=== PATIENT | male | born 1950 | race Caucasian/White ===

== ENCOUNTER 2021-10-27 | Inpatient (IN) | payer MEDICARE, OTHER, SELFPAY ==
[2021-10-27] VITALS (11 sets, daily range): BP systolic 136–165; BP diastolic 65–87; PULSE 52–77; RESP 15–18; TEMP 36.4–37; O2SAT 96–100; BMI 37.5; BMI 37.7
--- NOTE | 2021-10-27 00:23 | EKG12_ITS ---
Test Reason : Blood Pressure : / mmHG Vent. Rate : 055 BPM Atrial Rate : 055 BPM P-R Int : 156 ms QRS Dur : 086 ms QT Int : 428 ms P-R-T Axes : -26 003 024 degrees QTc Int : 409 ms Sinus bradycardia Otherwise normal ECG Confirmed by BEE RIVERA, TANNA ([id number]), editorial cartoonist STEPHANIA CARVALHO ([id number]) on 10/29/2021 2:02:29 PM Referred By: Confirmed By:TANNA GAMBOA MD
--- NOTE | 2021-10-27 00:23 | EX.ED.DYSGE1 ---
HPI History of Present Illness Chief Complaint: Abd Pain Informant: patient and spouse/S.O. Narrative Narrative: 70-year-old male presenting to the emergency department with abdominal pain. Patient states that he is from [facility]. He states that earlier tonight he ate dinner including pizza and developed abdominal pain. He describes it as right upper quadrant and epigastric. He notes that he has chronic back pain but does not believe he has had a change in his pain. No shoulder pain. He notes nausea but no vomiting. Has never had these symptoms before. No belching. He had a bowel movement this morning. No black or bloody stools. [facility] Medical History (Updated 10/27/21 @ 02:[address] Sheldon Dsouza, DO) Arthritis Back pain with history of spinal surgery Diabetes FHx: total knee replacement Hypertension Hypothyroidism Sleep apnea Home Medications acetaminophen 500 mg tablet 500 mg PO BID 10/27/21 [History Last Taken Unknown] allopurinol 100 mg tablet 100 mg PO DAILY 10/27/21 [History Last Taken Unknown] ascorbic acid (vitamin C) 1,000 mg tablet,extended release (Vitamin C ER) 1,000 mg PO DAILY 10/27/21 [History Last Taken Unknown] aspirin 81 mg chewable tablet 81 mg PO DAILY 10/27/21 [History Last Taken Unknown] evolocumab 140 mg/mL subcutaneous syringe (Repatha Syringe) mg subcut 10/27/21 [History Last Taken Unknown] furosemide 40 mg tablet 40 mg PO DAILY 10/27/21 [History Last Taken Unknown] gabapentin 300 mg capsule 300 mg PO BID 10/27/21 [History Last Taken Unknown] levothyroxine 25 mcg tablet 25 mcg PO DAILY 10/27/21 [History Last Taken Unknown] magnesium 500 mg tablet 15 mg PO DAILY 10/27/21 [History Last Taken Unknown] multivitamin 1 tab PO DAILY 10/27/21 [History Last Taken Unknown] pantoprazole 40 mg tablet,delayed release 40 mg PO DAILY 10/27/21 [History Last Taken Unknown] quinapril 20 mg tablet 20 mg PO BID 10/27/21 [History Last Taken Unknown] semaglutide 0.25 mg or 0.5 mg (2 mg/1.5 mL) subcutaneous pen injector (Ozempic) 0.5 mg subcut QWEEK 10/27/21 [History Last Taken Unknown] Allergy/AdvReac Type Severity Reaction Status Date / Time [id number]-PfG Reductase AdvReac Pain in Verified 10/27/21 00:02 Inhibitor joints Surgical History History of coronary artery stent placement Social History Smoking Status: Never smoker ROS ROS ED Constitutional Constitutional ED: Denies chills or weight loss Eyes Eyes: Denies change in vision or diplopia ENT ENT ED: Denies ear pain, rhinorrhea or sore throat Cardiovascular Cardiovascular: Denies chest pain, orthopnea, palpitations or racing heartbeat Respiratory/Chest Respiratory/Chest: Denies cough, dyspnea or orthopnea Gastrointestinal Gastrointestinal: Reports abdominal pain and nausea; Denies diarrhea or vomiting Genitourinary Genitourinary ED: Denies dysuria, hematuria or urinary frequency Musculoskeletal Musculoskeletal: Denies arthralgias or myalgias Integumentary Denies abscess or rash Neurologic Neurologic: Denies headache(s) or weakness Psychiatric Psychiatric: Denies anxiety, depression, suicidal ideation or suicidal thoughts Endocrine Endocrinology: Denies polydipsia, polyphagia or polyuria Allergic/Immunologic Allergic/Immunologic ED: Denies mouth swelling, tongue swelling or urticaria EXAM Physical Exam Const Vital Signs: 10/27/21 00:02 10/27/21 01:00 10/27/21 02:16 Temperature 97.5 F L 98.2 F Temperature Source Temporal Oral Pulse Rate 61 62 Respiratory Rate 15 16 Blood Pressure 151/82 H 165/82 H Blood Pressure Mean 105 109 Pulse Ox 98 100 Oxygen Delivery Method Room Air Room Air Positive well nourished and well developed General Appearance ED: well developed HEENT Reports normocephalic, head/scalp atraumatic and moist mucous membranes Eyes PERRL and EOMs intact bilaterally Neck no lymphadenopathy, supple and no JVD Resp normal respiratory effort and clear to auscultation bilaterally Cardio regular rate, regular rhythm and no murmurs GI Inspection: Negative for abdominal distention Auscultation: normoactive bowel sounds Palpation: soft and tender epigastric and RUQ Back/Spine no CVA tenderness and normal ROM Extremity normal to inspection General Extremety ED: Negative for edema General Extremity: Negative for edema Neuro oriented x3 and CN's II-XII intact bilaterally Sensorium / Orientation: alert Motor Exam: strength 5/5 throughout Psych mental status grossly normal Mood & Affect: Negative for depressed or tearful Skin no rashes or lesions noted and no wounds MDM MDM MDM Narrative Medical decision making narrative: White count returns at 12.4. Lipase 151 with normal liver enzymes. Patient received morphine and Zofran as well as Protonix and a GI cocktail. CT of the abdomen pelvis demonstrates apparent thickening of the gallbladder wall and possibly pericholecystic fluid. Ultrasound is not currently here at the hospital. They are on-call but just in a few hours they will be here. I spoke with the patient think is reasonable that we let him rest here tonight and will obtain a gallbladder ultrasound first thing in the morning. Care the patient will be reassigned to the daytime physician. Lab Data Attestation: I reviewed the patient's lab results. Labs: Laboratory Results - last 24 hr 10/27/21 10/27/21 00:15 00:15 WBC 12.4 H RBC 4.94 Hgb 14.8 Hct 44.3 MCV 89.7 MCH 30.0 MCHC 33.4 RDW Std Deviation 48.3 H RDW Coeff of [place] 14.6 Plt Count 177 MPV 10.6 Immature Gran % (Auto) 0.400 Neut % (Auto) 84.9 H Lymph % (Auto) 9.1 L [place] % (Auto) 4.8 Eos % (Auto) 0.6 Baso % (Auto) 0.2 Absolute Neuts (auto) 10.5 H Absolute Lymphs (auto) 1.12 Nucleated RBC % 0 Sodium 136 Potassium 4.1 Chloride 103 Carbon Dioxide 27.0 Anion Gap 6 BUN 23 H Creatinine 1.28 Estim Creat Clear Calc 51.95 Est GFR (MDRD) Af Amer 71 Est GFR (MDRD) Non-Af 59 L BUN/Creatinine Ratio 18.0 Glucose 146 H Calcium 9.8 Total Bilirubin 0.60 Direct Bilirubin 0.18 AST 56 H ALT 56 Alkaline Phosphatase 93 Troponin I High Sens 6 Total Protein 8.5 H Albumin 4.1 Globulin 4.4 H Lipase 151 Radiography Diagnostic Testing: Clinical Impression(s) from Imaging Studies Abdomen/Pelvis CT 10/27/21 01:04 IMPRESSION: Relatively prominent gallbladder wall. Ultrasound correlation may be helpful to evaluate for cholecystitis if clinically indicated. Prominent enhancement of the wall of the CBD question inflammatory. No other acute intra-abdominal findings. Sclerotic changes of lumbar vertebral bodies most likely related to degenerative changes. Electronically Signed: Lynsey Lemus MD at 1:53 EDT , EKG Initial EKG: Attestation: I personally reviewed and interpreted this EKG as follows: Comments: Sinus bradycardia with a ventricular rate of 55 bpm. Discharge Plan Triage Chief Complaint: Abd Pain ED Provider: Sheldon Dsouza Dx/Rx/DC Orders Clinical Impression: Abdominal pain, acute Prescriptions: No Action multivitamin [Daily Vitamin] Tablet 1 tab PO DAILY Vitamin C 1,000 mg Tablet Extended Release 1,000 mg PO DAILY furosemide 40 mg Tablet 40 mg PO DAILY magnesium 500 mg Tablet 15 mg PO DAILY allopurinol 100 mg Tablet 100 mg PO DAILY acetaminophen 500 mg Tablet 500 mg PO BID levothyroxine 25 mcg Tablet 25 mcg PO DAILY pantoprazole 40 mg Tablet,Delayed Release (Dr/Ec) 40 mg PO DAILY gabapentin 300 mg Capsule 300 mg PO BID aspirin [Baby Aspirin] 81 mg Tablet,Chewable 81 mg PO DAILY quinapril 20 mg Tablet 20 mg PO BID Ozempic 0.25 mg or 0.5 mg(2 mg/1.5 mL) Pen Injector 0.5 mg SUBCUT QWEEK Rx Instructions: for 4 doses Repatha Syringe 140 mg/mL Syringe SUBCUT Primary Care Provider: ELLYN ROBLES Referrals: [facility] Doctor,Out of [NON-STAFF] -
[2021-10-27] MEDS: Morphine 4 MG/ML Syringe IV ×6 (00:30→22:08)
[2021-10-27] MEDS: Ondansetron 4 MG/2 ML Vial IV ×2 (00:30→22:08)
[2021-10-27] MEDS: 0.9% Normal Saline 1,000 ML 1000 ML IV (00:30)
[2021-10-27 00:33] LABS: Absolute Lymphocyte Count 1.12 X10^3/uL (0.83-4.51); Absolute Neutrophil Count 10.5 X10^3/uL (2.0-7.7); Basophil# 0.02 X10^3/uL; Basophil% 0.2 % (0-1); Eosinophil# 0.07 X10^3/uL; Eosinophils% 0.6 % (0-5); Hematocrit 44.3 % (40-54); Hemoglobin 14.8 g/dL (13.0-16.5); Lymphocyte # 1.12 X10^3/ul (0.83-4.51); Lymphocyte % 9.1 % (19-41); Mean Corp Hgb Conc 33.4 g/dL (32-36); Mean Corpuscular Volume 89.7 fL (80-94); Mean Platelet Vol. 10.6 fl (6.2-12.0); Monocyte# 0.59 X10^3/uL; Monocyte% 4.8 % (0-10); NRBC Flagged by Analyzer 0 % (0-5); Neutrophil % 84.9 % (47-70); Platelet Count 177 K/mm3 (150-450); RBC Distribution Width CV 14.6 % (11.6-14.6); RBC Distribution Width SD 48.3 fl (35.1-43.9); Red Blood Count 4.94 M/mm3 (4.6-6.2); White Blood Count 12.4 K/mm3 (4.4-11.0)
[2021-10-27 00:54] LABS: AST(SGOT) 56 U/L (15-37); Alanine Aminotransfer ALT/SGPT 56 U/L (16-61); Albumin, Serum 4.1 g/dL (3.2-5.0); Alkaline Phosphatase 93 U/L (45-117); Anion Gap 6 (5-15); BUN 23 mg/dL (7-18); Bilirubin, Direct 0.18 mg/dL (0.00-0.30); Calcium,Total 9.8 mg/dL (8.5-10.1); Chloride 103 mmol/L (98-107); Creatinine, Serum 1.28 mg/dL (0.70-1.30); EST Glomerular Filtration Rate 59 mL/min (>60); Est Glom Filt Rate - Afr Amer 71 mL/min (>60); Estimated Creatinine Clearance 51.95 ml/min; Globulin 4.4 g/dL (2.2-4.2); Glucose 146 mg/dL (74-106); Lipase 151 U/L (73-393); Potassium 4.1 mmol/L (3.5-5.1); Protein, Total 8.5 g/dL (6.4-8.2); Sodium Level 136 mmol/L (136-145); Troponin-I HS (w/2H Reflex) 6 pg/mL (3.0-78.0)
--- NOTE | 2021-10-27 01:04 | CT_ITS ---
STUDY: CT ABDOMEN AND PELVIS WITH CONTRAST REASON FOR EXAM: Male, 70 years old. abdominal pain RADIATION DOSAGE (If Supplied By Facility): CTDIvol = ( 18.53 ) mGy, DLP = ( 1330.84 ) mGycm TECHNIQUE: Transaxial images were obtained from the dome of the diaphragm to the symphysis pubis without oral contrast. IV 100mL Isovue-370 was administered. Sagittal and coronal images were reconstructed. Individualized dose optimization techniques were used for this CT. COMPARISON: None. FINDINGS: LOWER CHEST: Mild interstitial changes in the lung bases. Coronary artery calcifications LIVER: Unremarkable. GALLBLADDER/BILE DUCTS: Prominent gallbladder wall. Small amount of adjacent fluid. No definite calcified gallstones identified. Relatively prominent enhancing wall of the common bile duct without significant biliary dilatation. PANCREAS: Unremarkable. SPLEEN: Unremarkable. ADRENAL GLANDS: Unremarkable. KIDNEYS / URETERS: Small calculus in the left kidney. No hydronephrosis.. BOWEL / MESENTERY: Unremarkable. No bowel obstruction. APPENDIX: Identified and normal. No evidence of acute appendicitis. PERITONEUM: No free air. No free fluid. VESSELS: Abdominal aorta is normal caliber. RETROPERITONEUM: Unremarkable. REPRODUCTIVE ORGANS: Unremarkable. BLADDER: Unremarkable. ABDOMINAL WALL: Unremarkable. BONES: Surgical hardware in the lumbar spine and degenerative changes. Relative sclerosis of L1 and L2 vertebral bodies and L5 and S1 likely secondary to degenerative changes.. OTHER: None. CT/Abdomen/Pelvis W IV Cont ONLY IMPRESSION: Relatively prominent gallbladder wall. Ultrasound correlation may be helpful to evaluate for cholecystitis if clinically indicated. Prominent enhancement of the wall of the CBD question inflammatory. No other acute intra-abdominal findings. Sclerotic changes of lumbar vertebral bodies most likely related to degenerative changes. Electronically Signed: Lynsey Lemus MD at 1:53 EDT ,
[2021-10-27] MEDS: Mag Hydrox/Al Hydrox/Simeth 30 ML UDC PO (01:21)
--- NOTE | 2021-10-27 02:20 | US_ITS ---
EXAM: US ABDOMEN LIMITED, RIGHT UPPER QUADRANT CLINICAL INDICATION: pain -- RUQ PAIN X 2 DAYS -- F/U CT TECHNIQUE: Real-time ultrasound of the right upper quadrant with image documentation. This report was created using [employer] report generation technology. COMPARISON: None. FINDINGS: LIVER: The liver measures 18.8 cm. There is normal echotexture. No intrahepatic biliary ductal dilation. GALLBLADDER: The gallbladder wall is thickened measuring 4 mm. A small echogenic focus present compatible with small gallstone. The patient had a positive sonographic Castaneda sign. There is trace pericholecystic fluid identified. COMMON BILE DUCT: The common bile duct measures 5 mm. The proximal common bile duct is within normal limits for the patient''s age. PANCREAS: Unremarkable as visualized. No focal abnormality is demonstrated in the pancreas. No pancreatic ductal dilatation. RIGHT KIDNEY: The right kidney measures 10.5 x 5.1 x 4.7 cm. There is no hydronephrosis. No shadowing calculus. No focal lesion or perinephric collection is demonstrated. US/Gallbladder IMPRESSION: Cholelithiasis with gallbladder wall thickening and trace pericholecystic fluid. Patient also had a positive sonographic Castaneda''s sign and these findings can be seen in cholecystitis. Electronically Signed: Ethan Blanc MD at 9:02 EDT ,
[2021-10-27 02:31] LABS: Reflex Troponin-HS? (from REC) Y
[2021-10-27] MEDS: Metoclopramide 10 MG/2 ML Vial 5 MG IV (08:36)
--- NOTE | 2021-10-27 10:44 | PCM.HP.STD ---
HPI - General General Date of Admission: 10/27/21 Date of Service: 10/27/21 Chief Complaint: Abdominal pain HPI Narrative IVANIA HERNANDEZ, is a 70 M who presents with 1 day history of abdominal pain. Patient stated he ate pizza and [place] He noted about an hour after he developed a band-like pain across the upper abdomen. Patient states the pain lasted for 5-6 hours without any relief. This prompted them to seek treatment. Patient and his are currently camping in the [facility]. They are from [facility] and all of their doctors are from that location. 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 She stated she knew the wait would be long at that ED so they decided to come to [facility] ED. Patient noted the pain in the right upper quadrant has improved since receiving pain medication, however it is still present. He noted nausea associated with the pain. No vomiting. He is urinating well. His last bowel movement was yesterday morning. He denies any previous abdominal surgeries. He has been vaccinated for COVID. He has never been diagnosed with COVID and recently had a COVID for a cruise in August which he was found negative. He denies current chest pain, cough, shortness of breath. He denies history of blood clots, stroke and myocardial infarction. He had 2 stents placed approximately 2 years ago and was placed on Brilinta at that time for 1 year. Brilinta had been discontinued now and he is maintained on a daily [address] 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 Patient has a history of diabetes which is well controlled per patient. He also has a history of sleep apnea which he uses a Bipap machine at night. Patient notes he had a uvulectomy procedure completed in 1999' for sleep apnea however he continues to use the machine. CT scan of the ab/pel was completed demonstrating: MPRESSION: Relatively prominent gallbladder wall.? Ultrasound correlation may be helpful to evaluate for cholecystitis if clinically indicated. Prominent enhancement of the wall of the CBD question inflammatory. No other acute intra-abdominal findings. Sclerotic changes of lumbar vertebral bodies most likely related to degenerative changes. RUQ u/s demonstrated: IMPRESSION: ? Cholelithiasis with gallbladder wall thickening and trace pericholecystic fluid.? Patient also had a positive sonographic Castaneda''s sign and these findings can be seen in cholecystitis. Patient was found to have a WBC of 12.4. AST is elevated at 56 otherwise liver enzymes are within normal range. [facility] Medical History (Updated 10/27/21 @ 11:25 by Caitlin CHRISTIANSON PA-C) Arthritis Back pain with history of spinal surgery Diabetes FHx: total knee replacement Hypertension Hypothyroidism Sleep apnea Home Medications acetaminophen 500 mg tablet 500 mg PO BID 10/27/21 [History Last Taken Unknown] allopurinol 100 mg tablet 100 mg PO DAILY 10/27/21 [History Last Taken Unknown] ascorbic acid (vitamin C) 1,000 mg tablet,extended release (Vitamin C ER) 1,000 mg PO DAILY 10/27/21 [History Last Taken Unknown] aspirin 81 mg chewable tablet 81 mg PO 2200 10/27/21 [History Last Taken Unknown] evolocumab 140 mg/mL subcutaneous syringe (Repatha Syringe) mg subcut 10/27/21 [History Last Taken Unknown] furosemide 40 mg tablet 40 mg PO DAILY 10/27/21 [History Last Taken Unknown] gabapentin 300 mg capsule 300 mg PO BID 10/27/21 [History Last Taken Unknown] levothyroxine 25 mcg tablet 25 mcg PO DAILY 10/27/21 [History Last Taken Unknown] magnesium 500 mg tablet 500 mg PO DAILY 10/27/21 [History Last Taken Unknown] multivitamin 1 tab PO DAILY 10/27/21 [History Last Taken Unknown] pantoprazole 40 mg tablet,delayed release 40 mg PO DAILY 10/27/21 [History Last Taken Unknown] quinapril 20 mg tablet 20 mg PO BID 10/27/21 [History Last Taken Unknown] semaglutide 0.25 mg or 0.5 mg (2 mg/1.5 mL) subcutaneous pen injector (Ozempic) 0.5 mg subcut QWEEK 10/27/21 [History Last Taken Unknown] Allergy/AdvReac Type Severity Reaction Status Date / Time [id number] Reductase AdvReac Pain in Verified 10/27/21 00:02 Inhibitor joints Surgical History History of coronary artery stent placement Social History Smoking Status: Never smoker ROS Constitutional Constitutional: Reports systems reviewed and no addt'l complaints, except as documented Eyes Eyes: Reports systems reviewed and no addt'l complaints, except as documented ENT HEENT: Reports systems reviewed and no addt'l complaints, except as documented Cardiovascular Cardiovascular: Reports systems reviewed and no addt'l complaints, except as documented and other Details: venous insufficiency of bilateral lower extremities Respiratory/Chest Respiratory/Chest: Reports systems reviewed and no addt'l complaints, except as documented Gastrointestinal Gastrointestinal: Reports systems reviewed and no addt'l complaints, except as documented Genitourinary Genitourinary: Reports systems reviewed and no addt'l complaints, except as documented Musculoskeletal Musculoskeletal: Reports systems reviewed and no addt'l complaints, except as documented Integumentary Integumentary: Reports systems reviewed and no addt'l complaints, except as documented Neurologic Neurologic: Reports systems reviewed and no addt'l complaints, except as documented Psychiatric Psychiatric: Reports systems reviewed and no addt'l complaints, except as documented Endocrine Endocrinology: Reports systems reviewed and no addt'l complaints, except as documented Hematologic/Lymphatic Hematologic/Lymphatic: Reports systems reviewed and no addt'l complaints, except as documented Allergic/Immunologic Allergic/Immunologic: Reports systems reviewed and no addt'l complaints, except as documented Vital Signs Vital Signs Vital Signs: 10/27/21 00:02 10/27/21 01:00 10/27/21 02:16 Temperature 97.5 F L 98.2 F Temperature Source Temporal Oral Pulse Rate 61 62 Respiratory Rate 15 16 Blood Pressure 151/82 H 165/82 H Blood Pressure Mean 105 109 Pulse Ox 98 100 Oxygen Delivery Method Room Air Room Air 10/27/21 04:58 10/27/21 06:45 10/27/21 08:27 Temperature 97.7 F L 97.6 F L Temperature Source Temporal Oral Pulse Rate 57 L 55 L 58 L Respiratory Rate 18 18 18 Blood Pressure 159/87 H 146/85 H 148/72 H Blood Pressure Mean 111 105 97 Pulse Ox 97 97 98 Oxygen Delivery Method Room Air Room Air Room Air Weight Weight: 246 lb 14.684 oz Body Mass Index (BMI) 37.5 Physical Exam Const alert, oriented x3 and no apparent distress Nutritional Appearance: obese HEENT normocephalic and head/scalp atraumatic Eyes PERRL Neck full ROM Lymph Lymphatic: no lymphadenopathy noted Chest inspection of chest normal Resp normal respiratory effort, normal air movement and clear to auscultation bilaterally Cardio regular rate and regular rhythm GI Inspection: abdominal distention and central obesity Auscultation: normoactive bowel sounds Palpation: soft and tender epigastric and RUQ no CVA tenderness Back/Spine no CVA tenderness Extremity General Extremity: edema bilateral lower extremity Details: mild Skin no rashes or lesions noted Neuro oriented x3, no focal motor deficits and no sensory deficits noted Psych mental status grossly normal and thought process normal Results Lab / Micro Data Result Diagrams: 10/27/21 00:15 10/27/21 00:15 Labs: Laboratory Results - last 24 hr 10/27/21 00:15: WBC 12.4 H, RBC 4.94, Hgb 14.8, Hct 44.3, MCV 89.7, MCH 30.0, MCHC 33.4, RDW Std Deviation 48.3 H, RDW Coeff of [place] 14.6, Plt Count 177, MPV 10.6, Immature Gran % (Auto) 0.400, Neut % (Auto) 84.9 H, Lymph % (Auto) 9.1 L, [place] % (Auto) 4.8, Eos % (Auto) 0.6, Baso % (Auto) 0.2, Absolute Neuts (auto) 10.5 H, Absolute Lymphs (auto) 1.12, Nucleated RBC % 0 10/27/21 00:15: Sodium 136, Potassium 4.1, Chloride 103, Carbon Dioxide 27.0, Anion Gap 6, BUN 23 H, Creatinine 1.28, Estim Creat Clear Calc 51.95, Est GFR (MDRD) Af Amer 71, Est GFR (MDRD) Non-Af 59 L, BUN/Creatinine Ratio 18.0, Glucose 146 H, Calcium 9.8, Total Bilirubin 0.60, Direct Bilirubin 0.18, AST 56 H, ALT 56, Alkaline Phosphatase 93, Troponin I High Sens 6, Total Protein 8.5 H, Albumin 4.1, Globulin 4.4 H, Lipase 151 Radiology Impression Abdomen/Pelvis CT 10/27/21 01:04 IMPRESSION: Relatively prominent gallbladder wall. Ultrasound correlation may be helpful to evaluate for cholecystitis if clinically indicated. Prominent enhancement of the wall of the CBD question inflammatory. No other acute intra-abdominal findings. Sclerotic changes of lumbar vertebral bodies most likely related to degenerative changes. Electronically Signed: Lynsey Lemus MD at 1:53 EDT , Gallbladder Ultrasound 10/27/21 02:20 IMPRESSION: Cholelithiasis with gallbladder wall thickening and trace pericholecystic fluid. Patient also had a positive sonographic Castaneda''s sign and these findings can be seen in cholecystitis. Electronically Signed: Ethan Blanc MD at 9:02 EDT , Assessment & Plan Assessment/Plan (1) Acute cholecystitis: PLAN: I am have evaluated this patient in conjunction with Dr. Harris. She will independently evaluate this patient. Patient presents with acute RUQ abdominal pain, positive gallbladder wall thickness and pericholecystic fluid consistent with acute cholecystitis. Plan to admit patient, IV antibiotics, clear liquid diet, and pain control. Consult hospitalist for medical management of the patient's diabetes and hypertension. Dr. Harris will plan to perform a laparoscopic cholecystectomy with intraoperative cholangiogram tomorrow. Procedure details, risks and benefits have been explained to the patient and patient's . All parties have had the opportunity to ask and have questions answered. Patient verbally understands and agrees with the plan. Patient is concerned that he has not had any of his normal medications yet this morning. Plan to restart routine medications upon admission. Patient to be NPO after midnight tonight. Surgery planned for approximately 1:30 pm, 10/28. Thank you for allowing us to participate in this patient's care. Appreciate Hospitalist recommendations and assistance with this patient. Charges/Coding Visit Charges Inpatient E&M: 65681 Init Hosp L2
--- NOTE | 2021-10-27 11:30 | RAD_ITS ---
EXAM: XR CHEST, 1 VIEW CLINICAL INDICATION: preop TECHNIQUE: Frontal view of the chest. This report was created using [employer] report generation technology. COMPARISON: None. FINDINGS: LUNGS AND PLEURAL SPACES: Unremarkable. No consolidation or edema. No pneumothorax. No effusion. HEART: Unremarkable. Cardiac silhouette not enlarged. MEDIASTINUM: Central airways and mediastinal contour are unremarkable. BONES/JOINTS: Unremarkable. SOFT TISSUES: Unremarkable. RAD/Chest 1 View (Portable) IMPRESSION: No radiographic evidence of acute cardiopulmonary disease. Electronically Signed: Ethan Blanc MD at 11:54 EDT ,
[2021-10-27] MEDS: Allopurinol 100 MG Tablet PO (11:54)
[2021-10-27] MEDS: Lisinopril 20 MG Tablet PO ×2 (11:54→22:31)
[2021-10-27] MEDS: Furosemide 40 MG Tablet PO (11:54)
[2021-10-27] MEDS: 0.9% Normal Saline 1,000 ML 100 ML IV ×2 (11:55→20:58)
[2021-10-27] MEDS: Pantoprazole Sodium 40 MG Tablet PO (11:59)
[2021-10-27 12:26] LABS: Bedside Glucose 129 mg/dL (74-106)
--- NOTE | 2021-10-27 15:20 | PN.HOSP_ITS ---
Subjective Subjective Mr. Briceno is a 70-year-old male who presented to the emergency department [facility] on 10/27/2021 with epigastric and right upper quadrant pain. He had been camping down here with friends as he is from [facility] and went for [employer] and [employer] last evening. Unfortunately afterwards at about 630 he developed some epigastric and right upper quadrant pain that felt like a band around this area. He states that his friend recently had a cholecystectomy due to gallbladder disease and told him it was the same pain he had. His symptoms did not subside so he decided to present to emergency department. A CT of his abdomen was performed by the emergency department physician and showed a relatively prominent gallbladder wall and a gallbladder ultrasound was performed. Right upper quadrant ultrasound showed cholelithiasis with gallbladder wall thickening and trace pericholecystic fluid as well as a positive sonographic Castaneda sign. General surgery has admitted the patient for cholecystectomy planned for tomorrow and we have been consulted for medical clearance. Patient has a past medical history of coronary artery disease for which she had stents placed approximately 2 years ago. He denies any ongoing chest pain or exertional dyspnea. He also has hyperlipidemia hypertension and hypothyroidism. He has had multiple surgeries previously and tolerated this well. He does have obstructive deep sleep apnea and sounds like he is on AutoPap at home but unfortunately does not have his machine available at this time. He states he typically does well in the hospital postoperatively with supplemental oxygen and oxygen nocturnally. He states his pain is currently fairly well controlled. Objective Data Objective Data Vital Signs: Vital Signs Temp Pulse Resp BP Pulse Ox O2 Del Method 98.0 F 77 16 141/71 H 100 Room Air 10/27/21 11:12 10/27/21 11:12 10/27/21 11:12 10/27/21 11:12 10/27/21 11:12 10/27/21 11:12 Oxygen Delivery Method Room Air Weight: 112.491 kg Body Mass Index (BMI) 37.7 Intake & Output: Intake and Output for Last 24 Hours 10/25/21 10/26/21 10/27/21 23:59 23:59 23:59 Intake Total 1710 / 1710 Balance 1710 / 1710 Lab / Micro Data Result Diagrams: 10/27/21 00:15 10/27/21 00:15 Labs: Laboratory Results - last 24 hr 10/27/21 00:15: WBC 12.4 H, RBC 4.94, Hgb 14.8, Hct 44.3, MCV 89.7, MCH 30.0, MCHC 33.4, RDW Std Deviation 48.3 H, RDW Coeff of Donavan 14.6, Plt Count 177, MPV 10.6, Immature Gran % (Auto) 0.400, Neut % (Auto) 84.9 H, Lymph % (Auto) 9.1 L, [place] % (Auto) 4.8, Eos % (Auto) 0.6, Baso % (Auto) 0.2, Absolute Neuts (auto) 10.5 H, Absolute Lymphs (auto) 1.12, Nucleated RBC % 0 10/27/21 00:15: Sodium 136, Potassium 4.1, Chloride 103, Carbon Dioxide 27.0, Anion Gap 6, BUN 23 H, Creatinine 1.28, Estim Creat Clear Calc 51.95, Est GFR (MDRD) Af Amer 71, Est GFR (MDRD) Non-Af 59 L, BUN/Creatinine Ratio 18.0, Glucose 146 H, Calcium 9.8, Total Bilirubin 0.60, Direct Bilirubin 0.18, AST 56 H, ALT 56, Alkaline Phosphatase 93, Troponin I High Sens 6, Total Protein 8.5 H, Albumin 4.1, Globulin 4.4 H, Lipase 151 10/27/21 12:06: POC Glucose 129 H Radiography Diagnostic Testing: Radiology Impression Abdomen/Pelvis CT 10/27/21 01:04 IMPRESSION: Relatively prominent gallbladder wall. Ultrasound correlation may be helpful to evaluate for cholecystitis if clinically indicated. Prominent enhancement of the wall of the CBD question inflammatory. No other acute intra-abdominal findings. Sclerotic changes of lumbar vertebral bodies most likely related to degenerative changes. Electronically Signed: Lynsey Lemus MD at 1:53 EDT , Gallbladder Ultrasound 10/27/21 02:20 IMPRESSION: Cholelithiasis with gallbladder wall thickening and trace pericholecystic fluid. Patient also had a positive sonographic Castaneda''s sign and these findings can be seen in cholecystitis. Electronically Signed: Ethan Blanc MD at 9:02 EDT , Chest X-Ray 10/27/21 11:30 IMPRESSION: No radiographic evidence of acute cardiopulmonary disease. Electronically Signed: Ethan Blanc MD at 11:54 EDT , Physical Exam Const alert, oriented x3, no apparent distress, healthy appearing and well nourished Constitutional Narrative: Obese white male sitting up in bed, at bedside, patient appears comfortable and nontoxic at this time HEENT head/scalp atraumatic, moist oral mucous membranes and oropharynx normal HEENT Narrative: Mallampati is 3 Resp normal respiratory effort, no retractions, no use of accessory muscles and clear to auscultation bilaterally Auscultation: Negative for crackles, rales, rhonchi or wheezes Cardio regular rate, regular rhythm, S1 normal heart sound, S2 normal heart sound, no murmurs, no rub, no gallops, no clicks and no JVD GI normal to inspection, nondistended, normoactive bowel sounds, soft to palpation and non-distended GI Narrative: Tender in the epigastrium and right upper quadrant Palpation: tender Extremity no clubbing, cyanosis or edema Extremity Narrative: Evidence of bilateral knee replacements with well-healed surgical incisions Neuro oriented x3, CN's II-XII intact bilaterally, moves all extremities and no focal motor deficits Psych affect normal Psych Narrative: Very pleasant and appropriately interactive Assessment & Plan Assessment/Plan (1) Acute cholecystitis: (2) Abdominal pain, acute: PLAN: Plan Acute cholecystitis -Management per primary service -Plans for OR tomorrow -Preoperative EKG shows normal sinus rhythm without any ST-T wave changes -Preoperative chest x-ray shows no acute findings -Recommend this postoperative oxygen supplementation as patient has a history of PARTH -Dr. Harris following CAD/HTN/HPL -Patient with history of coronary stents -Currently completely asymptomatic and EKG is unremarkable -Continue home Lasix -Continue home quinapril -Any home aspirin -Hold home Repatha but restarted on discharge History of gout -Continue home allopurinol Neuropathy -Continue home gabapentin Hypothyroidism -Continue home levothyroxine GERD -Continue Protonix DM-2 -Hold home Ozempic -Sliding scale insulin -Accu-Cheks every 6 hours while NPO and then before meals and at bedtime when diet initiated PARTH -Patient on AutoPap at home and we do not have capabilities to do that -Patient unable to bring in his home unit -We will use supplemental oxygen nocturnally DVT prophylaxis -Per primary service Charges/Coding Visit Charges Inpatient E&M: 13104 Subs Hosp L2
[2021-10-27 17:30] LABS: Bedside Glucose 119 mg/dL (74-106)
[2021-10-27 19:49] LABS: Thyroid Stim Hormone (TSH) 3.46 uIU/mL (0.358-3.74)
[2021-10-27] MEDS: Acetaminophen 325 MG Tablet 650 MG PO (20:57)
[2021-10-27] MEDS: 0.9% Saline Lock 10 ML Syringe IV (22:08)
[2021-10-27] MEDS: Gabapentin 300 MG Capsule PO (22:08)
[2021-10-27 22:50] LABS: Bedside Glucose 106 mg/dL (74-106)
[2021-10-28] VITALS (14 sets, daily range): BP systolic 108–174; BP diastolic 65–88; PULSE 49–63; RESP 16–18; TEMP 36.2–37.3; O2SAT 93–99; BMI 37.7
[2021-10-28] MEDS: 0.9% Normal Saline 1,000 ML 100 ML IV ×2 (05:40→20:14)
[2021-10-28 06:15] LABS: Bedside Glucose 103 mg/dL (74-106)
[2021-10-28 06:55] LABS: Absolute Lymphocyte Count 1.18 X10^3/uL (0.83-4.51); Absolute Neutrophil Count 6.4 X10^3/uL (2.0-7.7); Basophil# 0.01 X10^3/uL; Basophil% 0.1 % (0-1); Eosinophil# 0.04 X10^3/uL; Eosinophils% 0.5 % (0-5); Hematocrit 36.2 % (40-54); Hemoglobin 12.2 g/dL (13.0-16.5); Lymphocyte # 1.18 X10^3/ul (0.83-4.51); Lymphocyte % 13.6 % (19-41); Mean Corp Hgb Conc 33.7 g/dL (32-36); Mean Corpuscular Hgb 29.8 pg (27.0-32.0); Mean Corpuscular Volume 88.5 fL (80-94); Mean Platelet Vol. 11.2 fl (6.2-12.0); Monocyte# 0.98 X10^3/uL; Monocyte% 11.3 % (0-10); NRBC Flagged by Analyzer 0 % (0-5); Neutrophil # 6.42 X10^3/uL (2.7-7.7); Neutrophil % 74.3 % (47-70); Platelet Count 124 K/mm3 (150-450); RBC Distribution Width CV 15.1 % (11.6-14.6); Red Blood Count 4.09 M/mm3 (4.6-6.2); White Blood Count 8.7 K/mm3 (4.4-11.0)
[2021-10-28 07:20] LABS: ALB/GLOB Ratio 0.7 RATIO (0.9-2.4); AST(SGOT) 47 U/L (15-37); Alanine Aminotransfer ALT/SGPT 38 U/L (16-61); Albumin, Serum 2.5 g/dL (3.2-5.0); Alkaline Phosphatase 64 U/L (45-117); Anion Gap 3 (5-15); BUN 18 mg/dL (7-18); BUN/Creat Ratio 17.5 RATIO (10-20); Calcium,Total 8.7 mg/dL (8.5-10.1); Chloride 106 mmol/L (98-107); Creatinine, Serum 1.03 mg/dL (0.70-1.30); EST Glomerular Filtration Rate 76 mL/min (>60); Est Glom Filt Rate - Afr Amer 92 mL/min (>60); Estimated Creatinine Clearance 64.56 ml/min; Globulin 3.8 g/dL (2.2-4.2); Glucose 102 mg/dL (74-106); Potassium 4.1 mmol/L (3.5-5.1); Protein, Total 6.3 g/dL (6.4-8.2); Sodium Level 137 mmol/L (136-145)
--- NOTE | 2021-10-28 07:30 | CPS ---
Pt wears a CPAP at home but was camping without it and just wants to wear oxygen at night, not wear one of our machines.
--- NOTE | 2021-10-28 08:29 | PN.SURG_ITS ---
Subjective Subjective Patient states he still has an upper quadrant/epigastric pain is much better if he is resting and not moving around. Objective Data Objective Data Vital Signs: Vital Signs Temp Pulse Resp BP Pulse Ox O2 Del Method O2 Flow Rate 98.4 F 49 L 16 108/65 98 Nasal Cannula 2 10/28/21 05:54 10/28/21 05:54 10/28/21 05:54 10/28/21 05:54 10/28/21 07:30 10/28/21 07:30 10/28/21 07:30 Oxygen Flow Rate (L/min) 2 Oxygen Delivery Method Nasal Cannula Weight: 248 lb Body Mass Index (BMI) 37.7 Intake & Output: Intake and Output for Last 24 Hours 10/26/21 10/27/21 10/28/21 23:59 23:59 23:59 Intake Total 3225 / 3225 920 / 920 Balance 3225 / 3225 920 / 920 Lab / Micro Data Result Diagrams: 10/28/21 06:10 10/28/21 06:10 Labs: Laboratory Results - last 24 hr 10/27/21 00:15: TSH 3.46 10/27/21 12:06: POC Glucose 129 H 10/27/21 17:08: POC Glucose 119 H 10/27/21 22:28: POC Glucose 106 10/28/21 05:48: POC Glucose 103 10/28/21 06:10: WBC 8.7, RBC 4.09 L, Hgb 12.2 L, Hct 36.2 L, MCV 88.5, MCH 29.8, MCHC 33.7, RDW Std Deviation 49.0 H, RDW Coeff of Donavan 15.1 H, Plt Count 124 L, MPV 11.2, Immature Gran % (Auto) 0.200, Neut % (Auto) 74.3 H, Lymph % (Auto) 13.6 L, [place] % (Auto) 11.3 H, Eos % (Auto) 0.5, Baso % (Auto) 0.1, Absolute Neuts (auto) 6.4, Absolute Lymphs (auto) 1.18, Nucleated RBC % 0 10/28/21 06:10: Sodium 137, Potassium 4.1, Chloride 106, Carbon Dioxide 28.0, Anion Gap 3 L, BUN 18, Creatinine 1.03, Estim Creat Clear Calc 64.56, Est GFR (MDRD) Af Amer 92, Est GFR (MDRD) Non-Af 76, BUN/Creatinine Ratio 17.5, Glucose 102, Calcium 8.7, Total Bilirubin 0.70, AST 47 H, ALT 38, Alkaline Phosphatase 64, Total Protein 6.3 L, Albumin 2.5 L, Globulin 3.8, Albumin/Globulin Ratio 0.7 L 10/28/21 06:10: Hemoglobin A1c 6.0 H Radiography Diagnostic Testing: Radiology Impression Gallbladder Ultrasound 10/27/21 02:20 IMPRESSION: Cholelithiasis with gallbladder wall thickening and trace pericholecystic fluid. Patient also had a positive sonographic Castaneda''s sign and these findings can be seen in cholecystitis. Electronically Signed: Ethan Blanc MD at 9:02 EDT , Chest X-Ray 10/27/21 11:30 IMPRESSION: No radiographic evidence of acute cardiopulmonary disease. Electronically Signed: Ethan Blanc MD at 11:54 EDT , Physical Exam Const oriented x3 and no apparent distress Resp normal respiratory effort Cardio regular rate GI soft to palpation GI Narrative: Tender palpation epigastric/right upper quadrant, no peritoneal signs Inspection: Negative for abdominal distention Assessment & Plan Assessment/Plan (1) Acute cholecystitis: PLAN: Proceed with laparoscopic cholecystectomy with cholangiograms today. Patient's leukocytosis improved on IV Zosyn. Continue pain control Georgette Harris M.D. Pager: [phone] [facility] [address] [place] [address], [facility], [address] [place] [id number] Office: [phone]
[2021-10-28] MEDS: Pantoprazole Sodium 40 MG Tablet PO (10:08)
--- NOTE | 2021-10-28 11:51 | PN.HOSP_ITS ---
Subjective Subjective Patient reports that he is still having some right upper quadrant pain but overall had a good night was able to sleep. Surgery was this afternoon at 130 per his report and he states he was told that he possibly can go home later today depending on how he is doing. He has no needs at this time per our discussions. Objective Data Objective Data Vital Signs: Vital Signs Temp Pulse Resp BP Pulse Ox O2 Del Method O2 Flow Rate 97.8 F 57 L 16 136/71 H 99 Room Air 2 10/28/21 11:43 10/28/21 11:43 10/28/21 11:43 10/28/21 11:43 10/28/21 11:43 10/28/21 11:43 10/28/21 07:30 Oxygen Flow Rate (L/min) 2 Oxygen Delivery Method Room Air Weight: 112.491 kg Body Mass Index (BMI) 37.7 Intake & Output: Intake and Output for Last 24 Hours 10/26/21 10/27/21 10/28/21 23:59 23:59 23:59 Intake Total 3225 / 3225 970.00 / 970.00 Balance 3225 / 3225 970.00 / 970.00 Lab / Micro Data Result Diagrams: 10/28/21 06:10 10/28/21 06:10 Labs: Laboratory Results - last 24 hr 10/27/21 00:15: TSH 3.46 10/27/21 12:06: POC Glucose 129 H 10/27/21 17:08: POC Glucose 119 H 10/27/21 22:28: POC Glucose 106 10/28/21 05:48: POC Glucose 103 10/28/21 06:10: WBC 8.7, RBC 4.09 L, Hgb 12.2 L, Hct 36.2 L, MCV 88.5, MCH 29.8, MCHC 33.7, RDW Std Deviation 49.0 H, RDW Coeff of Donavan 15.1 H, Plt Count 124 L, MPV 11.2, Immature Gran % (Auto) 0.200, Neut % (Auto) 74.3 H, Lymph % (Auto) 1 3.6 L, [place] % (Auto) 11.3 H, Eos % (Auto) 0.5, Baso % (Auto) 0.1, Absolute Neuts (auto) 6.4, Absolute Lymphs (auto) 1.18, Nucleated RBC % 0 10/28/21 06:10: Sodium 137, Potassium 4.1, Chloride 106, Carbon Dioxide 28.0, Anion Gap 3 L, BUN 18, Creatinine 1.03, Estim Creat Clear Calc 64.56, Est GFR (MDRD) Af Amer 92, Est GFR (MDRD) Non-Af 76, BUN/Creatinine Ratio 17.5, Glucose 102, Calcium 8.7, Total Bilirubin 0.70, AST 47 H, ALT 38, Alkaline Phosphatase 64, Total Protein 6.3 L, Albumin 2.5 L, Globulin 3.8, Albumin/Globulin Ratio 0.7 L 10/28/21 06:10: Hemoglobin A1c 6.0 H Radiography Diagnostic Testing: Radiology Impression Chest X-Ray 10/27/21 11:30 IMPRESSION: No radiographic evidence of acute cardiopulmonary disease. Electronically Signed: Ethan Blanc MD at 11:54 EDT , Physical Exam Const alert, oriented x3, no apparent distress, healthy appearing and well nourished Constitutional Narrative: Obese white male lying in bed, appears comfortable nontoxic HEENT head/scalp atraumatic, moist oral mucous membranes and oropharynx normal Resp normal respiratory effort, no retractions, no use of accessory muscles and clear to auscultation bilaterally Auscultation: Negative for crackles, rales, rhonchi or wheezes Cardio regular rate, regular rhythm, S1 normal heart sound, S2 normal heart sound, no murmurs, no rub, no gallops, no clicks and no JVD GI normal to inspection, nondistended, normoactive bowel sounds, soft to palpation and non-distended GI Narrative: Remains tender in the epigastrium and right upper quadrant Palpation: tender Extremity no clubbing, cyanosis or edema Extremity Narrative: Evidence of bilateral knee replacements with well-healed surgical incisions Neuro oriented x3, CN's II-XII intact bilaterally, moves all extremities and no focal motor deficits Sensorium / Orientation: awake, alert, oriented to person, oriented to place and oriented to time Speech: speech normal Psych affect normal Psych Narrative: Very pleasant and appropriately interactive Assessment & Plan Assessment/Plan (1) Acute cholecystitis: (2) Abdominal pain, acute: PLAN: Plan Acute cholecystitis -Management per primary service -Plans for OR today 130 -Preoperative EKG shows normal sinus rhythm without any ST-T wave changes -Preoperative chest x-ray shows no acute findings -Recommend this postoperative oxygen supplementation as patient has a history of PARTH -Dr. Harris following -Per discussion with patient he was told possible discharge home later today depending on how surgery proceeds CAD/HTN/HPL -Patient with history of coronary stents -Currently completely asymptomatic and EKG is unremarkable -Continue home Lasix -Continue home quinapril -Continue home aspirin -Hold home Repatha but restarted on discharge History of gout -Continue home allopurinol Neuropathy -Continue home gabapentin Hypothyroidism -Continue home levothyroxine GERD -Continue Protonix DM-2 -Hold home Ozempic -Sliding scale insulin -Accu-Cheks every 6 hours while NPO and then before meals and at bedtime when diet initiated -A.m. A1c was 6.0 and a.m. fasting blood sugar was 102 PARTH -Patient on AutoPap at home and we do not have capabilities to do that -Patient unable to bring in his home unit -Continue supplemental oxygen postoperatively and nocturnally DVT prophylaxis -Per primary service Charges/Coding Visit Charges Inpatient E&M: 35004 Subs Hosp L2
[2021-10-28 11:55] LABS: Bedside Glucose 86 mg/dL (74-106)
--- NOTE | 2021-10-28 12:45 | CASEMGMT ---
MICHAELA CM in to pt room for assessment, pt is off of the floor at this time.
--- NOTE | 2021-10-28 13:09 | NURSING ---
@ 1230 pt to OR/Holding area for procedure 1400 alvin w/ pt
--- NOTE | 2021-10-28 13:30 | GALL_PTH ---
PATIENT: IVANIA HERNANDEZ LOC: MS3 U#:[id number] AGE/SX: 70/M ROOM: CA317 RE10/27/[address]: Dr. Georgette Harris MD : 1950 BED: 1 DIS: 10/29/2021 SPEC #: [id number] RECD: 10/29/21 10:42 STATUS: ZAFAR STEARNS #: [id number] POPEYE: 10/28/21 13:[address]: Georgette Harris DEPT: SURGICAL PATHOLOGY RECD BY: Katarina Valentino ENTERED: 10/29/21 10:45 SP TYPE: LALA BLACKWOOD DR: DO Caitlin Padilla PA-C Tissues: Gallbladder, NOS Procedures: Surgery Specimen Level III HEADER OPERATION: Laparoscopic cholecystectomy with IOC PRE-OP DIAGNOSIS: Acute cholecystitis TISSUE SUBMITTED: Gallbladder MICROSCOPIC DIAGNOSIS Gallbladder, cholecystectomy: Acute and chronic ulcerated cholecystitis and cholelithiasis. Reactive epithelial changes. ARNAV:sandra 11/01/2021 MICROSCOPIC DESCRIPTION Slides are reviewed. GROSS DESCRIPTION Received is one container labeled with the patient's name and designated gallbladder. The specimen consists of a gallbladder measuring 6.5 cm in length and up to 4 cm in diameter. The gallbladder is previously opened. The external surface is pink-branch, smooth and glistening for the most part. Focally it is granular, hemorrhagic and contains cautery artifact. The gallbladder contains a small amount of hemorrhagic content. Present in the gallbladder are multiple blood clots mixed with brown irregular stones measuring in aggregate 2 x 1 x 0.5 cm and 0.1 to 0.5 cm in greatest dimension. The mucosa is congested and hemorrhagic. Sections of the gallbladder wall reveal congested cut surfaces. The gallbladder wall measures up to 1 cm in thickness. Materials Planning Analyst sections from the gallbladder and the cystic duct are submitted in two cassettes. / ARNAV:sandra 10/29/2021 TC:2 CPT: 83938
--- NOTE | 2021-10-28 15:51 | PCM.OPRPT ---
Report of Operation Date of Procedure: 10/28/21 Pre-Operative Diagnosis: Acute cholecystitis, cholelithiasis Post-Operative Diagnosis: Same Surgery/Procedure Performed:: Laparoscopic cholecystectomy Surgeon: Georgette Harris senior ui web developer: Ema Alonzo Type of Anesthesia: General/Supplemental Anesthesiologist: [place] Special Medications: Zosyn 3.375 g IV every 8 hours for acute cholecystitis Specimen's removed: Gallbladder and stones Description of Procedure: Indications: this is a 70 year-old male who developed abdominal pain/nausea/vomiting and on workup was found to have acute cholecystitis, cholelithiasis, with a normal common bile duct. Laparoscopic cholecystectomy was elected. Description procedure: The patient was placed on operating table in supine position. A timeout was completed verifying correct patient, procedure, site, position and special equipment prior to beginning procedure. General Anesthesia was induced. The abdomen was prepped and draped in usual sterile fashion. An incision was made in the natural skin line above the umbilicus. The fascia was elevated and incised. The peritoneum was elevated and incised. Entry into the peritoneum was confirmed visually and no bowel was noted in the vicinity of the incision. Bradley trocar was placed. The abdomen was insufflated with carbon dioxide to a pressure of 12-15 mmHg. Patient tolerated insufflation well. The laparoscope was then inserted and abdomen inspected. No injuries from initial trocar placement were noted. Additional trochars were then inserted in the following locations 5 mm trocar in the epigastrium and 2 more 5 mm trochars along the right costal margin. The abdomen was inspected no abnormalities were found. The table is placed in reverse Trendelenburg position with the right side up. Gallbladder was inflamed with a thickened wall compressed the gallbladder. The dome of the gallbladder was grasped with atraumatic grasper passed through the lateral port and retracted over the dome of the liver. Infundibulum was then grasped with atraumatic grasper through the midclavicular port and retracted to the right lower quadrant. This maneuver exposed Calot's triangle. The peritoneum overlying the gallbladder infundibulum was then incised and cystic duct and artery identified and circumferentially dissected. Due to the thickened gallbladder wall, dense adhesions unable to do cholangiograms. The cystic duct and artery were then doubly clipped and divided close to the gallbladder. The gallbladder then dissected from its peritoneal attachments by electrocautery. Due to dense adhesions as well as slightly intrahepatic gallbladder the distal posterior/fundic wall was left on the liver. Erby was used for hemostasis and also coagulation of the posterior wall of the gallbladder. Hemostasis was checked and the gallbladder and contained stones were removed using the endoscopic retrieval bag through the umbilical port. The gallbladder is passed off table as specimen. The gallbladder fossa was irrigated with saline and Alex was also placed in the gallbladder fossa. Hemostasis was assured. There is no evidence of bleeding from the gallbladder fossa or cystic artery leakage of bile from the cystic duct stump. Secondary trochars removed under direct vision. No bleeding was noted the trocar sites. The laparoscope was withdrawn and umbilical trocar removed. The abdomen was allowed to collapse. The fascia of the 12 mm trocar was closed with a [id number] 0 Vicryl suture. The skin was closed with sutures of 4-0 Monocryl and Steri-Strips. The patient was extubated. The patient tolerated procedure well and was taken to the postanesthesia care unit in stable condition. Complications none
[2021-10-28] MEDS: Bupivacaine 0.25% 30 ML Vial (15:59)
[2021-10-28 16:45] LABS: Bedside Glucose 96 mg/dL (74-106)
[2021-10-28] MEDS: Morphine 4 MG/ML Syringe IV (21:13)
[2021-10-28] MEDS: Gabapentin 300 MG Capsule PO (21:14)
[2021-10-28] MEDS: Lisinopril 20 MG Tablet PO (21:14)
[2021-10-28] MEDS: oxyCODONE 5 MG Tablet 10 MG PO (23:16)
[2021-10-28] MEDS: Acetaminophen 325 MG Tablet 650 MG PO (23:17)
[2021-10-28 23:36] LABS: Bedside Glucose 100 mg/dL (74-106)
[2021-10-29 02:55] VITALS: BMI 37.7
[2021-10-29 05:15] VITALS: BP 133/73; PULSE 78; RESP 18; TEMP 37.2; O2SAT 97
[2021-10-29] MEDS: 0.9% Normal Saline 1,000 ML 100 ML IV (05:22)
[2021-10-29] MEDS: Levothyroxine 25 MCG TABLET PO (05:23)
[2021-10-29 05:46] LABS: Bedside Glucose 75 mg/dL (74-106)
[2021-10-29 06:26] VITALS: BMI 37.7
--- NOTE | 2021-10-29 07:17 | PCM.PN.SRG ---
Subjective Subjective Patient tolerated clears mild soreness at abdominal incisions, previous right upper quadrant/epigastric pain resolved. Objective Data Objective Data Vital Signs: Vital Signs Temp Pulse Resp BP Pulse Ox O2 Del Method O2 Flow Rate 98.9 F 78 18 133/73 H 97 Nasal Cannula 2 10/29/21 05:15 10/29/21 05:15 10/29/21 05:15 10/29/21 05:15 10/29/21 05:15 10/29/21 05:15 10/29/21 05:15 Oxygen Flow Rate (L/min) 2 Oxygen Delivery Method Nasal Cannula Weight: 248 lb Body Mass Index (BMI) 37.7 Intake & Output: Intake and Output for Last 24 Hours 10/27/21 10/28/21 10/29/21 23:59 23:59 23:59 Intake Total 3225 / 3225 3020.00 / 3020.00 963.33 / 963.33 Output Total 200 / 200 300 / 300 Balance 3225 / 3225 2820.00 / 2820.00 663.33 / 663.33 Lab / Micro Data Result Diagrams: 10/28/21 06:10 10/28/21 06:10 Labs: Laboratory Results - last 24 hr 10/28/21 06:10: Sodium 137, Potassium 4.1, Chloride 106, Carbon Dioxide 28.0, Anion Gap 3 L, BUN 18, Creatinine 1.03, Estim Creat Clear Calc 64.56, Est GFR (MDRD) Af Amer 92, Est GFR (MDRD) Non-Af 76, BUN/Creatinine Ratio 17.5, Glucose 102, Calcium 8.7, Total Bilirubin 0.70, AST 47 H, ALT 38, Alkaline Phosphatase 64, Total Protein 6.3 L, Albumin 2.5 L, Globulin 3.8, Albumin/Globulin Ratio 0.7 L 10/28/21 06:10: Hemoglobin A1c 6.0 H 10/28/21 11:37: POC Glucose 86 10/28/21 16:28: POC Glucose 96 10/28/21 23:13: POC Glucose 100 10/29/21 05:22: POC Glucose 75 Physical Exam Resp normal respiratory effort Cardio regular rate GI GI Narrative: Abdomen: Soft, nondistended, tender near incision's dressed clean dry and intact, no peritoneal signs Assessment & Plan Assessment/Plan (1) S/P laparoscopic cholecystectomy: (2) Acute cholecystitis: PLAN: Plan Patient is doing well tolerating clears if tolerates regular diet okay to DC Will stop Geovanni Harris M.D. Pager: [phone] [facility] [address] [place] [address], [address] [place] [address] Office: [phone]
[2021-10-29 07:46] VITALS: O2SAT 99
--- NOTE | 2021-10-29 08:19 | DCINST_ITS ---
Discharge Instructions Diet Discharge Diet: Light diet - advance as tolerated Activity Discharge Activity: May Not Drive (while taking narcotic pain medications.) May shower in (days): 1 Lifting Restrictions: no lifting >20 lbs x 2 wks, no strenuous exercise for 4 wks Dressing / Incision Call your doctor if your incision/area has: Continuous Slow Oozing, Sudden Increased Bleeding, Increased Pain/ Swelling, Increased Redness, Foul Smelling Discharge and Swelling at the incision site Call your doctor if you observe: Fever of 101 or Higher Remove Dressing in: 2 days Cleanse incision/area with: Soap & Water Additional Dressing/Incision Instructions:: Steri-Strips will fall off in 7 to 10 days, if they do not fall off okay to remove after 10 days. Follow Up Care Please Follow Up With: Georgette Harris MD When: Call the office for a follow-up appointment 2 weeks; after 5 PM and on the weekends call [phone] with any concerns. Test Results: Test results from this visit will be discussed in further detail at your follow- up appointment, if applicable. Discharge Plan Admission Admit Date/Time: 10/27/21 13:35 Attending Provider: Georgette Harris Primary Care Provider: ELLYN ROBLES Consulting Providers: Caitlin Roland ; Talya Greenberg Discharge Orders/Prescriptions Prescriptions: New oxycodone 5 mg capsule 5 mg PO Q6H PRN (Reason: pain) 3 Days Qty: 14 0RF Continued multivitamin Tablet 1 tab PO DAILY Vitamin C 1,000 mg Tablet Extended Release 1,000 mg PO DAILY furosemide 40 mg Tablet 40 mg PO DAILY magnesium 500 mg Tablet 500 mg PO DAILY allopurinol 100 mg Tablet 100 mg PO DAILY acetaminophen 500 mg Tablet 500 mg PO BID levothyroxine 25 mcg Tablet 25 mcg PO DAILY pantoprazole 40 mg Tablet,Delayed Release (Dr/Ec) 40 mg PO DAILY gabapentin 300 mg Capsule 300 mg PO BID aspirin 81 mg Tablet,Chewable 81 mg PO 2200 quinapril 20 mg Tablet 20 mg PO BID Ozempic 0.25 mg or 0.5 mg(2 mg/1.5 mL) Pen Injector 0.5 mg SUBCUT QWEEK Rx Instructions: for 4 doses Repatha Syringe 140 mg/mL Syringe SUBCUT Referrals / Follow Up: ELLYN ROBLES [Other] [facility] Doctor,Out of [NON-STAFF] - Disposition Disposition (needs filled in before D/C Order can be placed): Home, Self Care
--- NOTE | 2021-10-29 08:23 | DS.PCM_ITS ---
Providers Date of Admission: 10/27/21 Primary Care Physician: ELLYN ROBLES Consultations 10/27/21 10:36 Consult: Hospitalist Routine Consulting Provider: Myriam Phan Reason for Consult: Medical management EMERGENT Consult: No MD Notified: Yes Date Notified: 10/27/21 Time Notified: 10:37 Method of Notification: Verbal Reason For Visit: ACUTE CHOLECYSTITIS Diagnosis Discharge Diagnosis (1) S/P laparoscopic cholecystectomy: Status: Acute Code(s): Z90.49 - Acquired absence of other specified parts of digestive tract (2) Acute cholecystitis: Status: Resolved Code(s): K81.0 - Acute cholecystitis Plan Patient is doing well tolerating clears if tolerates regular diet okay to DC Will stop Geovanni Harris M.D. Pager: [phone] [facility] [address] [place] [address], [address] [place] [address] Office: [phone] Medications at Discharge Home Medications acetaminophen 500 mg tablet 500 mg PO BID 10/27/21 allopurinol 100 mg tablet 100 mg PO DAILY 10/27/21 ascorbic acid (vitamin C) 1,000 mg tablet,extended release (Vitamin C ER) 1,000 mg PO DAILY 10/27/21 aspirin 81 mg chewable tablet 81 mg PO 2200 10/27/21 evolocumab 140 mg/mL subcutaneous syringe (Repatha Syringe) mg subcut 10/27/21 furosemide 40 mg tablet 40 mg PO DAILY 10/27/21 gabapentin 300 mg capsule 300 mg PO BID 10/27/21 levothyroxine 25 mcg tablet 25 mcg PO DAILY 10/27/21 magnesium 500 mg tablet 500 mg PO DAILY 10/27/21 multivitamin 1 tab PO DAILY 10/27/21 pantoprazole 40 mg tablet,delayed release 40 mg PO DAILY 10/27/21 quinapril 20 mg tablet 20 mg PO BID 10/27/21 semaglutide 0.25 mg or 0.5 mg (2 mg/1.5 mL) subcutaneous pen injector (Ozempic) 0.5 mg subcut QWEEK 10/27/21 oxycodone 5 mg capsule 5 mg PO Q6H PRN pain 3 days #14 caps 10/28/21 Hospital Course Operations cholecystecomy (Laparoscopic) Procedures None Summary of Care Provided Minutes Spent on Discharge: 15 Hospital Course: Patient came into the ER due to epigastric right upper quadrant pain. CT abdomen pelvis as well as ultrasound sound consistent with acute cholecystitis White blood cell count was 12.4. Patient was started on IV Zosyn. Patient was allowed to clears that day but otherwise n.p.o. with plan for laparoscopic cho lecystectomy on 10/28/2021. Patient underwent laparoscopic cholecystectomy. Postoperatively patient did well tolerating diet, pain controlled, ambulating patient was able to be DC'd home. Physical Exam Resp normal respiratory effort Cardio regular rate GI GI Narrative: Abdomen: Soft, nondistended, tender near incision's dressed clean dry and intac t, no peritoneal signs Weight / BMI Weight Weight: 248 lb Body Mass Index (BMI) 37.7 ABG / Lab / Microbiology Data Result Diagrams: 10/28/21 06:10 10/28/21 06:10 Laboratory: Laboratory Results - last 24 hr 10/28/21 11:37: POC Glucose 86 10/28/21 16:28: POC Glucose 96 10/28/21 23:13: POC Glucose 100 10/29/21 05:22: POC Glucose 75 D/C Instructions Discharge Diet: Light diet - advance as tolerated May shower in (days): 1 Call your doctor if your incision/area has: Continuous Slow Oozing, Sudden Increased Bleeding, Increased Pain/ Swelling, Increased Redness, Foul Smelling Discharge and Swelling at the incision site Call your doctor if you observe: Fever of 101 or Higher Cleanse incision/area with: Soap & Water Additional Dressing/Incision Instructions: Steri-Strips will fall off in 7 to 10 days, if they do not fall off okay to remove after 10 days. Please Follow Up With: Georgette Harris MD When: Call the office for a follow-up appointment 2 weeks; after 5 PM and on the weekends call [phone] with any concerns. Meaningful Use Info Meaningful Use Diagnoses (Choose all that apply): None applicable Discharge Plan Admission Admit Date/Time: 10/27/21 13:35 Attending Provider: Georgette Harris Primary Care Provider: ELLYN ROBLES Consulting Providers: Caitlin Roland ; Talya Greenberg Discharge Orders/Prescriptions Prescriptions: New oxycodone 5 mg capsule 5 mg PO Q6H PRN (Reason: pain) 3 Days Qty: 14 0RF Continued multivitamin Tablet 1 tab PO DAILY Vitamin C 1,000 mg Tablet Extended Release 1,000 mg PO DAILY furosemide 40 mg Tablet 40 mg PO DAILY magnesium 500 mg Tablet 500 mg PO DAILY allopurinol 100 mg Tablet 100 mg PO DAILY acetaminophen 500 mg Tablet 500 mg PO BID levothyroxine 25 mcg Tablet 25 mcg PO DAILY pantoprazole 40 mg Tablet,Delayed Release (Dr/Ec) 40 mg PO DAILY gabapentin 300 mg Capsule 300 mg PO BID aspirin 81 mg Tablet,Chewable 81 mg PO 2200 quinapril 20 mg Tablet 20 mg PO BID Ozempic 0.25 mg or 0.5 mg(2 mg/1.5 mL) Pen Injector 0.5 mg SUBCUT QWEEK Rx Instructions: for 4 doses Repatha Syringe 140 mg/mL Syringe SUBCUT Referrals / Follow Up: ELLYN ROBLES [[facility]] [facility] Doctor,Out of [NON-STAFF] - Disposition Disposition (needs filled in before D/C Order can be placed): Home, Self Care
--- NOTE | 2021-10-29 09:08 | CASEMGMT ---
MICHAELA BROWN Assessment: Face to Face with pt for initial transition planning/care coordination assessment. MICHAELA BROWN introduced self and role at [facility], pt voices understanding and consents to assessment. Pt is A/O x4 and answers all questions appropriately at this time. Pt sitting on edge of bed in no distress. Care providers, pharmacy, and demographics verified/updated. Admitting Dx: acute cholecystitis PCP:Brayan Specialists:Pt reports all of his specialists are from [facility]. 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 Preferred Pharmacy: [facility] Retail Insurance: [employer], AARP Prescription Benefit: yes LW/HPOA: Pt states he has a LW/DPOA and his DPOA is his [place]ric[place]. He is aware it is not on file at [facility] and he may bring in to be scanned into his chart. LNOK: [place]ric[place], Living Arrangements: Pt lives with in a single story house with 3 steps to enter. Pt reports he is I in ADL's and denies concerns at home. Transportation: Pt drives self and denies concerns with transportation. DME/HHC/SNF: Pt has a CPAP at home as well as BGM with sufficient supplies. Pt denies further AD, previous HHC or SNF stays. Pt states no concerns with going home at time of dc. Pt states no further concerns/needs. CM to follow. Advised pt to ask CM if any further question/concerns/needs arise, voices understanding. Pt Goal: Home Plan: Home
[2021-10-29 09:20] VITALS: BP 146/76; PULSE 75; RESP 18; TEMP 37; O2SAT 97
[2021-10-29] MEDS: Magnesium Chloride 64 MG Delay Rel.Tablet 128 MG PO (09:23)
[2021-10-29] MEDS: Ascorbic Acid 500 MG Tablet 1000 MG PO (09:23)
[2021-10-29] MEDS: Allopurinol 100 MG Tablet PO (09:23)
[2021-10-29] MEDS: Pantoprazole Sodium 40 MG Tablet PO (09:24)
[2021-10-29] MEDS: Lisinopril 20 MG Tablet PO (09:24)
[2021-10-29] MEDS: oxyCODONE 5 MG Tablet 10 MG PO (09:28)
[2021-10-29] MEDS: Gabapentin 300 MG Capsule PO (09:28)
[2021-10-29 10:55] VITALS: BMI 37.7
== END 2021-10-29 10:50 | disposition home or self-care (01) | DRG 419 ==
LOC: ED 10:37 → MS3 10:43
PROVIDERS: Anesthesiology; Physician Assistant; Admitting Provider Surgery; Emergency Provider Emergency Medicine; Visit Provider Surgery
PROC: (CPT 47610; principal; 2021-10-28 13:10)
DX: K80.12 Calculus of gallbladder with acute and chronic cholecystitis without obstruction (principal); E03.9 Hypothyroidism, unspecified; E11.40 Type 2 diabetes mellitus with diabetic neuropathy, unspecified; I10 Essential (primary) hypertension; G47.33 Obstructive sleep apnea (adult) (pediatric); E78.00 Pure hypercholesterolemia, unspecified; K21.9 Gastro-esophageal reflux disease without esophagitis; I25.10 Atherosclerotic heart disease of native coronary artery without angina pectoris; M10.9 Gout, unspecified; Z79.899 Other long term (current) drug therapy; Z79.82 Long term (current) use of aspirin; Z95.5 Presence of coronary angioplasty implant and graft; E66.9 Obesity, unspecified; Z68.37 Body mass index [BMI] 37.0-37.9, adult
CPT/HCPCS: 36415; 71045; 74177; 76705; 80048; 80053; 80076; 82962; 83036; 83690; 84443; 84484; 85025; 88304; 93005; 99251; 99284; J7030; Q9967; A4216; G0463; J2405